=== PATIENT | female | born 1970 | race Hispanic/Latino ===

== ENCOUNTER 2023-05-24 13:32 | Outpatient (CLI) | payer OTHER | END 2023-05-24 13:33 | disposition home or self-care (01) | LOC: CSHRAD 13:32 | PROVIDERS: ATTEND Physician Assistant Medical | DX: R05.3 Chronic cough (principal) | CPT/HCPCS: 71046 ==

== ENCOUNTER 2024-10-08 09:19 | Observation (INO) | payer BC, SELFPAY ==
[2024-10-08 10:13] LABS: INR-International Normal Ratio 1.0; PTT 22.0 sec (22.0-33.0); Prothrombin Time 11.4 sec (9.5-12.1)
[2024-10-08 10:15] LABS: White Blood Cell (WBC) Count 7.11 10x3/uL (3.5-10.5)
[2024-10-08 10:16] LABS: #Basophils 0.11 10x3/uL (0.0-0.2); #Eosinophils 0.30 10x3/uL (0.0-0.5); #Monocytes 0.55 10x3/uL (0.0-1.1); #Neutrophils 3.73 10x3/uL (1.5-8.4); %Basophils 1.5 % (0.0-2.0); %Eosinophils 4.2 % (0.0-6.0); %Lymphocytes 33.9 % (18.0-47.0); %Monocytes 7.7 % (0.0-10.0); %Neutrophils 52.6 % (40.0-75.0); Hematocrit 27.3 % (34.9-44.5); Hemoglobin 8.0 g/dL (12.0-15.5); Mean Corpuscular Hemoglobin 21.9 pg (27.0-33.0); Mean Corpuscular Volume 74.8 fL (81.6-98.3); Platelet Count 473 10x3/uL (150-450); Red Blood Cell (RBC) Count 3.65 10x6/uL (3.90-5.03)
[2024-10-08 10:19] LABS: ALT (SGPT) 16 U/L (Less than 34); AST (SGOT) 14 U/L (11-34); Albumin 3.8 g/dL (3.1-4.5); Alkaline Phosphatase 69 U/L (40-110); Anion Gap 14 mmol/L (10-20); BUN (Urea Nitrogen) 13 mg/dL (9.8-20.1); Bilirubin, Total 0.3 mg/dL (0.3-1.2); Calc. Creatinine Clearance 0 mL/min (70-130); Calcium 9.5 mg/dL (7.8-10.44); Carbon Dioxide 22 mmol/L (22-29); Chloride 107 mmol/L (98-107); Globulin 3.5 g/dL (2.4-3.5); Glucose 217 mg/dL (70-105); Potassium 3.8 mmol/L (3.5-5.1); Sodium 139 mmol/L (136-145)
[2024-10-08 10:25] LABS: Microcytosis SLIGHT = 6-15 cells (100X) (0-5/hpf); Troponin I Less than 0.010 ng/mL (< 0.028)
[2024-10-08 10:26] LABS: Ovalocytes SLIGHT = 2-5 cells (100X) (0-1/hpf); Polychromasia SLIGHT = 2-3 cells (100X) (0-2/hpf)
[2024-10-08 10:27] LABS: Anisocytosis MODERATE=16-30 cells (100X) (0-5/hpf); Platelet Adequacy Comment Appears Increased
[2024-10-08] MEDS ORDERED: Acetaminophen 500 MG TAB PO PRN (12:30)
[2024-10-08] MEDS ORDERED: Calcium Carbonate 500 MG ChewTAB PO PRN (12:30)
[2024-10-08] MEDS ORDERED: Ondansetron PF 4 MG/2 ML Vial IVP PRN (12:30)
[2024-10-08] MEDS ORDERED: Glucagon 1 MG/ML KIT IM PRN (12:44)
[2024-10-08] MEDS ORDERED: Dextrose 50% Abboject 50 ML SYRINGE SLOW IVP PRN (12:44)
[2024-10-08 13:47] VITALS: BMI 28.7
[2024-10-08 14:06] LABS: Hematocrit 26.5 % (34.9-44.5); Hemoglobin 7.6 g/dL (12.0-15.5); Mean Corpuscular Hemoglobin 21.4 pg (27.0-33.0); Mean Corpuscular Volume 74.6 fL (81.6-98.3); Platelet Count 464 10x3/uL (150-450); Red Blood Cell (RBC) Count 3.55 10x6/uL (3.90-5.03); White Blood Cell (WBC) Count 6.72 10x3/uL (3.5-10.5)
[2024-10-09 05:44] LABS: Hematocrit 32.6 % (34.9-44.5); Hemoglobin 9.8 g/dL (12.0-15.5); Mean Corpuscular Hemoglobin 22.8 pg (27.0-33.0); Mean Corpuscular Volume 76.0 fL (81.6-98.3); Platelet Count 481 10x3/uL (150-450); Red Blood Cell (RBC) Count 4.29 10x6/uL (3.90-5.03); White Blood Cell (WBC) Count 9.01 10x3/uL (3.5-10.5)
[2024-10-09] MEDS: Glimepiride 2 MG TAB PO SCH (09:04)
[2024-10-09 09:08] VITALS: BP 140/77; TEMP 98
== END 2024-10-09 12:11 | disposition home or self-care (01) ==
LOC: CSHERS 09:19 → CSHTELE 10:41
PROVIDERS: ADMIT Specialist; ATTEND Specialist
DX: D50.0 Iron deficiency anemia secondary to blood loss (chronic) (principal); N93.8 Other specified abnormal uterine and vaginal bleeding; C53.9 Malignant neoplasm of cervix uteri, unspecified; E11.9 Type 2 diabetes mellitus without complications; Z98.51 Tubal ligation status; Z98.890 Other specified postprocedural states; Z88.6 Allergy status to analgesic agent; Z79.84 Long term (current) use of oral hypoglycemic drugs
CPT/HCPCS: 36415; 36416; 36430; 71045; 72197; 80053; 84484; 85025; 85027; 85610; 85730; 86850; 86900; 86901; 93005; 94760; G0378; P9016